=== PATIENT | male | born 1940 | race Hispanic/Latino ===

== ENCOUNTER 2024-07-21 14:46 | Emergency (ER) | payer OTHER ==
[~2024-07-21] VITALS: Ht 167.6 cm; Wt 53.1 kg
[2024-07-21 14:55] VITALS: BP 164/74; PULSE 81; RESP 20; TEMP 97.7
--- NOTE | 2024-07-21 15:42 | HMCIMG ---
CT ABDOMEN WITHOUT CONTRAST. CT PELVIS WITHOUT CONTRAST. INDICATION: Abdominal pain; No relevant information related to this study was provided in patient's history by the ordering service. TECHNIQUE: Routine transaxial imaging using 5 mm slice thickness through the abdomen and pelvis without the administration of IV contrast. Thin slice reconstructions are also provided. Coronal and sagittal reformatted images acquired for interpretation. CT was performed with one or more of the following dose reduction techniques: Automated exposure control, adjustment of the mA and/or kV according to patient size, or use of iterative reconstruction technique. COMPARISON: None FINDINGS: ON NONCONTRAST IMAGING: ABDOMEN: Diagnostic sensitivity of this examination is limited by patient motion artifact. Heart size is normal. Coronary arterial wall calcific plaque noted. Subcentimeter calcified granuloma at the posterior right lung base. Mild bilateral hydroureteronephrosis without any abnormal renal or ureteral calcifications. Several very small simple bilateral renal cysts. The liver is normal in size and smooth in contour without biliary duct dilation. The spleen is normal in size and attenuation. The gallbladder appears normal. Moderate to severe pancreatic atrophy without pancreatic duct dilation. The adrenal glands appear normal. No significant abdominal, retrocrural or retroperitoneal adenopathy noted. No evidence for intra-abdominal free air or organized fluid collection. Mild calcific plaque is noted along the abdominal aortic and iliac vessel wang without aneurysmal dilation. PELVIS: Moderate urinary bladder distention, but urinary bladder appears otherwise normal. No evidence for free air or organized pelvic fluid collection. No significant pelvic adenopathy detected. Several diverticula along the distal colon. Terminal ileum appears unremarkable. The appendix appears normal. Multiple pelvic phleboliths. Prostate gland transverse dimension measures 5.5 cm. Mild thoracolumbar spondylosis. Contiguous calcification of the anterior longitudinal ligament along the thoracolumbar spine can be seen with ankylosing spondylitis. IMPRESSION: Limitations as reported. No relevant information related to this study was provided in patient's history by the ordering service. 1. Moderate urinary bladder distention and mild bilateral hydroureteronephrosis without CT evidence for cystitis or obstructing stone or mass, perhaps related to at least mild degree of bilateral outlet obstruction or alternatively, neurogenic bladder. Prostate gland measures 5.5 cm. 2. Distal colonic diverticulosis. 3. Findings suggesting element of ankylosing spondylitis. 4. Arteriosclerotic disease as described.
[2024-07-21 15:46] LABS: BASOPHILS # (AUTO) 0.02 K/uL (0.00-0.20); BASOPHILS % (AUTO) 0.2 % (0.0-5.0); EOSINOPHILS # (AUTO) 0.06 K/uL (0.00-0.70); EOSINOPHILS % (AUTO) 0.6 % (0.0-8.0); HEMATOCRIT 38.8 % (42-54); IMMATURE GRANULOCYTE ABSOLUTE 0.04 K/uL (0-1); LYMPHOCYTES # (AUTO) 1.2 K/uL (1.0-4.8); LYMPHOCYTES % (AUTO) 12.1 % (21.0-51.0); MEAN CORPUSCULAR HEMOGLOBIN 28.7 pg (27.0-33.0); MEAN CORPUSCULAR HGB CONC 32.7 g/dL (32.0-36.0); MEAN CORPUSCULAR VOLUME 87.8 fL (79-99); MONOCYTES # (AUTO) 1.1 K/uL (0.1-1.0); MONOCYTES % (AUTO) 11.6 % (3.0-13.0); NEUTROPHILS # (AUTO) 7.3 K/uL (1.8-7.7); NEUTROPHILS % (AUTO) 75.1 % (40.0-77.0); PLATELET COUNT (AUTO) 271 K/uL (130-400); RED BLOOD CELL COUNT(AUTO) 4.42 MIL/uL (4.50-6.20); RED CELL DISTRIBUTION WIDTH 12.4 % (11.0-15.5); WHITE BLOOD COUNT (AUTO) 9.7 K/uL (4.8-10.8)
[2024-07-21 16:00] LABS: INR 0.99 (0.85-1.15); PROTHROMBIN TIME 10.5 SEC (9.6-11.6)
[2024-07-21 16:06] LABS: ALBUMIN 3.1 g/dL (3.5-5.0); BILIRUBIN,DIRECT 0.2 mg/dL (0.0-0.3); BILIRUBIN,TOTAL 0.6 mg/dL (0.2-1.0); POTASSIUM 4.7 mmol/L (3.5-5.1); TOTAL PROTEIN, SERUM 7.3 g/dL (6.0-8.3)
--- NOTE | 2024-07-21 16:06 | HMCIMG ---
PORTABLE CHEST RADIOGRAPH INDICATION: sob COMPARISON: None FINDINGS: Heart size is normal. Mild calcific plaque is present along the aortic arch wang. The pulmonary vascularity and shabbir appear normal. No abnormal pulmonary parenchymal opacity or consolidation identified. No significant pleural effusion noted. No pneumothorax detected. IMPRESSION: No radiographic evidence for any acute cardiopulmonary process.
[2024-07-21 16:07] LABS: B-TYPE NATRIURETIC PEPTIDE 105 pg/mL (0-100)
[2024-07-21 16:15] LABS: CREATININE 10.3 mg/dL (0.5-1.3)
--- NOTE | 2024-07-21 17:44 | ERN ---
ED Note History of Present Illness Stated Complaint: SENT BY Chief Complaint: Abnormal Labs Time Seen by MD: 14:47 Time Seen by Midlevel: 14:47 Dictation: The patient is an 84-year-old male with no significant medical history who presents to the emergency department after being sent over by the [facility] due to abnormal lab. Patient had labs drawn yesterday for evaluation of weakness and nonbloody diarrhea that started on Wednesday. Creatinine was 8.2 and gfr 6 compared to labs from 06/27/24 creatinine was 0.66 and gfr at 92. Per patients son there is no longer any diarrhea, nausea or vomiting. patient does not have any complains. Son reports patient at baseline. Allergies: Coded Allergies: No Known Allergies (Unverified Allergy, Unknown, 07/21/24) Past Medical History Past Medical History: No Pertinent History Surgical History: Other RN Note Reviewed/Agreed w/PFSH: Yes Review of System Dictation Constitutional: Negative for fever,chills, and weight loss Eyes: Negative for injury, pain,redness, and discharge ENT: Negative for injury,pain or swelling Cardiovascular: Negative for chest pain, palpitations, and edema Respiratory: Negative for shortness of breath, cough, and wheezing, Abdomen/GI: Negative for nausea, vomiting, and constipation for abdominal pain, diarrhea Back: Negative for injury and pain : Negative for injury, bleeding and discharge MS/Extremity: Negative for injury and deformity Skin: Negative for rash, and discoloration Neuro: Negative for headache, weakness, numbness, tingling, and seizure Psych: Negative for suicide ideation, homicidal ideation, and hallucinations Initial Vital Sign VS Vital Signs Date Time Temp Pulse Resp B/P (MAP) Pulse Ox O2 Delivery O2 Flow Rate FiO2 07/21/24 14:55 97.7 81 20 164/74 98 0 Physical Exam Dictation Vital Signs reviewed General Appearance: Alert, oriented x 1, no acute distress, well developed, nourished. Head and Face: non-traumatic. Eyes: PERRL, pink conjunctivas, eyelid no trauma, anterior chamber with arcus senilis. Ears: Pinnas intact and no signs of trauma or erythema ear canals clear and no discharge TM no erythema Nose: No discharge, no bleeding. Oropharynx: Mouth normal, tongue pink. pharynx clear,no erythema, tonsils no exudates, no abscesses noted, mucous membrane moist Neck: Supple, non-tender, no thyromegaly, no masses, no JVD, no bruits Breast:Deferred Chest:No tenderness, no crepitus, no paradoxical movement, no retractions Lungs:Clear, well-ventilated, symmetric, no rales, no wheezing, no rhonchi, no stridor, good breath sounds bilaterally Heart: Regular rate, regular rhythm, no murmur, no gallops Vascular: no peripheral edema, Abdomen: Soft, positive bowel sounds, nondistended, no guarding, nontender, no rebound, no masses no hepatomegaly, no splenomegaly, no Weldon's sign, no hernias. Rectal: Deferred Genital: Deferred Neurological: Normal speech, motor function intact, sensory function intact Musculoskeletal: Neck nontender, full range of motion, back nontender, full range of motion, Extremities: nontender, full range of motion Skin: Color pink, dry, no turgor, no rash, no lacerations, no abrasions, no contusions. Lymphatic: Deferred Results (Laboratory/Radiology) Laboratory/Radiology Laboratory Tests Test 07/21/24 15:35 White Blood Count 9.7 K/uL (4.8-10.8) Red Blood Count 4.42 MIL/uL (4.50-6.20) L Hemoglobin 12.7 g/dL (14.0-18.0) L Hematocrit 38.8 % (42-54) L Mean Corpuscular Volume 87.8 fL (79-99) Mean Corpuscular Hemoglobin 28.7 pg (27.0-33.0) Mean Corpuscular Hemoglobin Concent 32.7 g/dL (32.0-36.0) Red Cell Distribution Width 12.4 % (11.0-15.5) Platelet Count 271 K/uL (130-400) Mean Platelet Volume 9.1 fL (7.5-10.5) Immature Granulocyte % (Auto) 0.4 % (0-1) Neutrophils (%) (Auto) 75.1 % (40.0-77.0) Lymphocytes (%) (Auto) 12.1 % (21.0-51.0) L Monocytes (%) (Auto) 11.6 % (3.0-13.0) Eosinophils (%) (Auto) 0.6 % (0.0-8.0) Basophils (%) (Auto) 0.2 % (0.0-5.0) Neutrophils # (Auto) 7.3 K/uL (1.8-7.7) Lymphocytes # (Auto) 1.2 K/uL (1.0-4.8) Monocytes # (Auto) 1.1 K/uL (0.1-1.0) H Eosinophils # (Auto) 0.06 K/uL (0.00-0.70) Basophils # (Auto) 0.02 K/uL (0.00-0.20) Absolute Immature Granulocyte (auto 0.04 K/uL (0-1) Nucleated Red Blood Cells 0.0 % (0.0-0.19) Prothrombin Time 10.5 SEC (9.6-11.6) Prothromb Time International Ratio 0.99 (0.85-1.15) Activated Partial Thromboplast Time 29.0 SEC (26.3-35.5) Sodium Level 133 mmol/L (136-145) L Potassium Level 4.7 mmol/L (3.5-5.1) Chloride Level 93 mmol/L (101-111) L Carbon Dioxide Level 28 mmol/L (21-32) Blood Urea Nitrogen 102 mg/dL (7-18) *H Creatinine 10.3 mg/dL (0.5-1.3) *H Glomerular Filtration Rate Calc 4 mL/min (>90) Random Glucose 166 mg/dL (70-105) H Total Calcium 8.4 mg/dL (8.5-10.1) L Total Bilirubin 0.6 mg/dL (0.2-1.0) Direct Bilirubin 0.2 mg/dL (0.0-0.3) Aspartate Amino Transf (AST/SGOT) 20 U/L (10-37) Alanine Aminotransferase (ALT/SGPT) 12 U/L (12-78) Alkaline Phosphatase 69 U/L (50-136) Total Creatine Kinase 57 U/L (21-232) Troponin I High Sensitivity 7 ng/L (4-75) B-Type Natriuretic Peptide 105 pg/mL (0-100) H Total Protein 7.3 g/dL (6.0-8.3) Albumin 3.1 g/dL (3.5-5.0) L Lipase 14 U/L (16-77) L REASON: ABD PAIN ORDERING PHYSICIAN: ALONDRA TADEO PROCEDURE: ABD PEL WO - CT ABDOMEN/PELVIS W/O CONTRAST CT ABDOMEN WITHOUT CONTRAST. CT PELVIS WITHOUT CONTRAST. INDICATION: Abdominal pain; No relevant information related to this study was provided in patient's history by the ordering service. TECHNIQUE: Routine transaxial imaging using 5 mm slice thickness through the abdomen and pelvis without the administration of IV contrast. Thin slice reconstructions are also provided. Coronal and sagittal reformatted images acquired for interpretation. CT was performed with one or more of the following dose reduction techniques: Automated exposure control, adjustment of the mA and/or kV according to patient size, or use of iterative reconstruction technique. COMPARISON: None FINDINGS: ON NONCONTRAST IMAGING: ABDOMEN: Diagnostic sensitivity of this examination is limited by patient motion artifact. Heart size is normal. Coronary arterial wall calcific plaque noted. Subcentimeter calcified granuloma at the posterior right lung base. Mild bilateral hydroureteronephrosis without any abnormal renal or ureteral calcifications. Several very small simple bilateral renal cysts. The liver is normal in size and smooth in contour without biliary duct dilation. The spleen is normal in size and attenuation. The gallbladder appears normal. Moderate to severe pancreatic atrophy without pancreatic duct dilation. The adrenal glands appear normal. No significant abdominal, retrocrural or retroperitoneal adenopathy noted. No evidence for intra-abdominal free air or organized fluid collection. Mild calcific plaque is noted along the abdominal aortic and iliac vessel wang without aneurysmal dilation. PELVIS: Moderate urinary bladder distention, but urinary bladder appears otherwise normal. No evidence for free air or organized pelvic fluid collection. No significant pelvic adenopathy detected. Several diverticula along the distal colon. Terminal ileum appears unremarkable. The appendix appears normal. Multiple pelvic phleboliths. Prostate gland transverse dimension measures 5.5 cm. Mild thoracolumbar spondylosis. Contiguous calcification of the anterior longitudinal ligament along the thoracolumbar spine can be seen with ankylosing spondylitis. IMPRESSION: Limitations as reported. No relevant information related to this study was provided in patient's history by the ordering service. 1. Moderate urinary bladder distention and mild bilateral hydroureteronephrosis without CT evidence for cystitis or obstructing stone or mass, perhaps related to at least mild degree of bilateral outlet obstruction or alternatively, neurogenic bladder. Prostate gland measures 5.5 cm. 2. Distal colonic diverticulosis. 3. Findings suggesting element of ankylosing spondylitis. 4. Arteriosclerotic disease as described. REASON: sob ORDERING PHYSICIAN: ALONDRA TADEO PROCEDURE: CXR1VW - CHEST 1VW PORTABLE CHEST RADIOGRAPH INDICATION: sob COMPARISON: None FINDINGS: Heart size is normal. Mild calcific plaque is present along the aortic arch wang. The pulmonary vascularity and shabbir appear normal. No abnormal pulmonary parenchymal opacity or consolidation identified. No significant pleural effusion noted. No pneumothorax detected. IMPRESSION: No radiographic evidence for any acute cardiopulmonary process. Labs Reviewed?: Yes ED Course ED Course Orders Procedure Category Date Status Time Cbc With Differential LAB 07/21/24 Complete 15:11 B-Type Natriuretic LAB 07/21/24 Complete Peptide 15:11 Chest 1vw RAD 07/21/24 Resulted 15:11 Creatine Kinase, Total LAB 07/21/24 Complete 15:11 Troponin I High LAB 07/21/24 Complete Sensitivity 15:11 Urinalysis Profile LAB 07/21/24 Logged 15:11 Basic Metabolic Panel LAB 07/21/24 Complete 15:11 Hepatic Function Panel LAB 07/21/24 Complete 15:11 Lipase LAB 07/21/24 Complete 15:11 Pt And Ptt LAB 07/21/24 Complete 15:11 Ct Abdomen/Pelvis W/O CT 07/21/24 Resulted Contrast 15:11 Nurse Driven Maxwell ADAMARIS 07/21/24 In Process Removal Pro 16:36 12 Lead Ekg Tracing- EKG 07/21/24 Logged Technical 17:43 Diazepam 2 Mg Tab PHA 07/21/24 In Process (Valium 2 Mg Tab) 18:30 Current Medications Medications (Trade) Dose Ordered Sig/[place] Route PRN Reason Start Time Stop Time Status Last Admin Dose Admin Diazepam (VALium 2 mg Tab) 2 mg ONCE PO 07/21/24 18:30 07/21/24 21:30 Vital Signs Date Time Temp Pulse Resp B/P (MAP) Pulse Ox O2 Delivery O2 Flow Rate FiO2 07/21/24 14:55 97.7 81 20 164/74 98 0 Medical Decision Making MDM MDM: The patient is an 84-year-old male with no significant medical history who presents to the emergency department after being sent over by the [facility] due to abnormal lab. Patient had labs drawn yesterday for evaluation of weakness and nonbloody diarrhea that started on Wednesday. Creatinine was 8.2 and gfr 6 compared to labs from 06/27/24 creatinine was 0.66 and gfr at 92. Per patients son there is no longer any diarrhea, nausea or vomiting. patient does not have any complains. Son reports patient at baseline. CBC showed No leukocytosis mild normocytic anemia, chemistry showed mild hyponatremia , mild hypochloremia, creatinine 10.3, gfr of 5, negative troponin, slightly elevated bnp. CT showed moderate urinary bladder distention and mild bilateral hydronephrosis without evidence of cystitis or obstruction stone or mass. Patient will be admitted for further management. Differential diagnosis: Acute renal failure, electrolyte imbalance, gastroenteritis, urinary obstruction Comorbidities: none Was informed patient refused Maxwell. Attempted to convince patient how important it is to keep maxwell and his condition. Son present. Patient continues to refused. risk and benefits explained to patient including . Patient continues to refuse treatment and stating he wants to leave. Patient getting agitated but is aware of situation. I was informed by staff that patient left AMA DX & DISP Disposition: AMA Departure Condition: Stable Referrals: CARRLOL SHOOK MD (PCP) I have reviewed the case, and I agree with, Diagnosis and Plan ALONDRA TADEO [facility] Jul 21, 2024 17:44
--- NOTE | 2024-07-21 18:05 | NUR ---
BLADDER SCAN WITH 775 ML OF URINE IN BLADDER, PT REFUSING CERRATO INSERTION, FAMILY AT BEDSIDE TRYING TO CONVINCE PT TO ALLOW CERRATO CATH
[2024-07-21] MEDS ORDERED: diazePAM 2 MG TAB PO SCH (18:30)
--- NOTE | 2024-07-21 18:45 | NUR ---
AMA PATIENT ALERT X3, PATIENT REFUSED CERRATO CATHETER AND STATES "I WANT TO GO HOME!" SON AT BEDSIDE TRIED TO CONVINCE PATIENT TO STAY BUT PATIENT WAS STILL REFUSING, I EXPLAINED TO PATIENT THE MEDICAL REASON WHY HE IS BEING ADMITTED AND THE RISKS OF HIM LEAVING AMA, WHICH HE STILL REFUSED, SON AT BEDSIDE UNDERSTOOD, PATIENT SIGNED AMA FORM AND AMBULATED OUT OF ED, ACCOMPANIED BY SON
--- NOTE | 2024-07-22 13:13 | EKG ---
[facility] Test Date: 2024-07-21 Test Time: 17:39:32 Pat Name: DOUG KAY Department: ED Room: Gender: M [employer]fit Financial [employer]: 06 : 1940 Requested By: SERVANDO AREVALO Order Number: [id number] Reading MD: Latrice Rey Measurements Intervals [place] Rate: 75 P: 55 AR: 176 QRS: -9 QRSD: 108 T: 43 QT: 393 QTc: 439 Interpretive Statements Sinus rhythm No previous ECG available for comparison Electronically Signed On 07-22-2024 17:04:04 CDT by Latrice Rey Please click the below link to view image of tracing.
== END 2024-07-21 18:48 | disposition left against medical advice (07) ==
LOC: EDH 14:46
DX: K57.30 Diverticulosis of large intestine without perforation or abscess without bleeding (principal); Z79.01 Long term (current) use of anticoagulants
CPT/HCPCS: 36415; 71045; 74176; 80048; 80076; 82550; 83690; 83880; 84484; 85025; 85610; 85730; 93005; 99285